=== PATIENT | female | born 1940 | race Caucasian/White ===

== ENCOUNTER → 2020-07-04 15:32 | Outpatient (BNVA) | payer MEDICARE, OTHER, SELFPAY | PROVIDERS: Family Provider Nurse Practitioner; PCP Nurse Practitioner Family; Visit Provider Family Medicine | DX: I10 Essential (primary) hypertension (principal); R79.89 Other specified abnormal findings of blood chemistry | CPT/HCPCS: 80048; 80061 ==

== ENCOUNTER 2020-08-29 15:34 | Outpatient (CLI) | payer MEDICARE, OTHER, SELFPAY ==
--- NOTE | 2020-08-29 15:45 | USCV_ITS ---
Rosemarie Gonzalez Age: 79 Gender: F : 1940 Exam Date: 08/29/2020 16:12 Ordering Phys: Audelia Hardy MD Technologist: Marie Giordano [place] [facility] [place]: PAIN IN LEFT LEG HISTORY: Left lower extremity pain. PROCEDURES: Comparison: none available. Venous duplex imaging was performed in only the left lower extremity. The following venous structures were evaluated: common femoral vein, profunda vein, proximal portion of the greater saphenous vein, superficial femoral vein, and the popliteal vein. In addition, the posterior tibial and peroneal trunk were evaluated. Serial compression, augmentation maneuvers, and spectral Doppler flow evaluation were performed. FINDINGS: No evidence of DVT seen in any vessel visualized at this time. There is a left lower extremity cystic area measuring 1.9 x 0.9 x 1.3 cm CONCLUSIONS No evidence of left lower extremity DVT. Left popliteal cyst measuring 1.9 x 0.9 x 1.3cm Remigio Ha MD (Electronically Signed) Final Date: 30 August 2020 12:33 S
== END 2020-08-29 15:35 | disposition home or self-care (01) ==
LOC: RAD 15:39
PROVIDERS: PCP Nurse Practitioner Family; Visit Provider Family Medicine
DX: M79.605 Pain in left leg (principal); M79.89 Other specified soft tissue disorders; M71.22 Synovial cyst of popliteal space [Baker], left knee
CPT/HCPCS: 93971

== ENCOUNTER → 2021-03-25 09:33 | Outpatient (BNVA) | payer MEDICARE, OTHER, SELFPAY | PROVIDERS: PCP Nurse Practitioner Family; Visit Provider Family Medicine | DX: Z13.220 Encounter for screening for lipoid disorders (principal); Z13.6 Encounter for screening for cardiovascular disorders; I10 Essential (primary) hypertension; R79.89 Other specified abnormal findings of blood chemistry | CPT/HCPCS: 80053; 80061 ==

== ENCOUNTER → 2021-09-23 09:47 | Outpatient (BNVA) | payer MEDICARE, OTHER, SELFPAY | PROVIDERS: PCP Nurse Practitioner Family; Visit Provider Family Medicine | DX: I10 Essential (primary) hypertension (principal); N18.1 Chronic kidney disease, stage 1; E87.1 Hypo-osmolality and hyponatremia | CPT/HCPCS: 80048 ==

== ENCOUNTER 2022-02-12 09:35 | Emergency (ER) | payer MEDICARE, OTHER, SELFPAY ==
[2022-02-12 09:44] VITALS: BP 199/122; PULSE 86; RESP 16; TEMP 36.4; O2SAT 97; BMI 25.4
[2022-02-12 09:46] VITALS: BP 179/87; RESP 18
--- NOTE | 2022-02-12 10:07 | XRR_ITS ---
PROCEDURE INFORMATION: Exam: XR Left Hip Exam date and time: 02/12/2022 10:15 AM Age: 81 years old Clinical indication: Patient HX: Left hip pain x 2 days. Denies any injury; Additional info: Nontraumatic pain left hip TECHNIQUE: Imaging protocol: Radiologic exam of the Left hip. Views: 2 or 3 views hip with pelvis when performed. COMPARISON: No relevant prior studies available. FINDINGS: Bones/joints: Small calcifications are present along the greater trochanter which are probably ligamentous and which could be from remote trauma. No recent fracture or other acute abnormalities are seen. The hip joint is otherwise unremarkable. Soft tissues: Unremarkable. XR/XR hip LT 2-3V wo/w pel* [id number] IMPRESSION: No significant abnormality.
--- NOTE | 2022-02-12 10:08 | W.ED.EXTPRO ---
HPI - Extremity Problem General: Chief complaint: Extremity Problem,Nontraumatic Stated complaint: Right leg pain Time Seen by Provider: 02/12/22 10:02 History of Present Illness: very pleasant 81 year old female presents with 2 days of nontraumatic left lateral hip pain worse with ambulating. No prior history, denies weakness or numbness distal to painful area, no edema, no discoloration, no claudication. No prior history of OA or bursitis. Denies any pelvic or flank pain, no problems with GI or . NO NVD, no paresthesias or weakness. Agrees with plan to allow up to obtain hip x-ray, discussed suspect bursitis or arthritis, will follow up with PCP within the week, advised anti-inflammatories and/or steroids as treatment of choice, patient agrees. Associated symptoms: Deny chest pain, fever(s) or rash Review of Systems Const: Denies: fever(s) or chills Eyes: Denies: change in vision or blurry vision ENMT: Denies: throat pain Card: Denies: chest pain, irregular heart rhythm, swelling of feet/ankles, dyspnea on exertion, orthopnea or leg pain with exertion Resp: Denies: dyspnea, productive cough, wheezing or hemoptysis GI: Denies: abdominal pain, nausea, vomiting, diarrhea, constipation or fecal incontinence : Denies: flank pain, difficulty voiding or dysuria Musc: Denies: neck pain, back pain or extremity swelling Skin/Breast: Denies: rash Neuro: Denies: headache(s), numbness in extremities, weakness in extremities, sensory changes, lack of coordination or difficulty walking Dylan/Lymph: Denies: easy bruising PFS ED PFSH: Medical History Benign hypertension Surgical History H/O bilateral cataract extraction H/O dilation and curettage Family History Family/Other Cancer Social History Smoking and tobacco status: never smoked Alcohol intake: never Female Reproductive History: Spontaneous abortions: No Physical Exam Const: COMMON NORMALS: no acute distress, patient oriented x3, no limitations, healthy appearing, alert and well nourished HENMT: COMMON NORMALS: normocephalic and atraumatic HEAD & SCALP: normocephalic and atraumatic Eye: COMMON NORMALS: Equal, round and reactive pupils present, EOMs intact bilaterally and conjunctivae normal CONJUNCTIVA: Yes conjunctivae normal PUPIL: Yes Equal, round and reactive pupils present Neck/C-Spine: COMMON NORMALS: full ROM and supple Chest: COMMONS NORMALS: normal inspection of the chest Resp: COMMON NORMALS: normal respiratory effort and clear to auscultation bilaterally EFFORT & INSPECTION: Yes able to speak in complete sentences and Yes symmetric chest movement AUSCULTATION: clear to auscultation bilaterally Cardio: COMMON NORMALS: regular rate, regular rhythm and Peripheral pulses 2+ throughout RATE: regular rate RHYTHM: regular rhythm PERIPHERAL PULSES: Peripheral pulses 2+ throughout GI: COMMON NORMALS: Normal to inspection, nondistended, normoactive bowel sounds present and non-tender : COMMON NORMALS: Yes no CVA tenderness BLADDER/KIDNEY EXAM: Yes no CVA tenderness Back/Pelvis: COMMON NORMALS: no CVA tenderness, thoracic and lumbar spine normal to inspection, no thoracic nor lumbar tenderness and thoraco-lumbar ROM normal Extremity: COMMON NORMALS: normal to inspection, full ROM, no calf tenderness and no pedal edema NARRATIVE EXTREMITY EXAM: mild pain to left lateral hip/ bursa area only when walking, no pain lying down or resting, no pain with palpation Neuro: COMMON NORMALS: patient oriented x3, CN's II-XII intact bilaterally, moves all extremities, no focal motor deficits and no sensory deficits noted SENSORIUM/ORIENTATION: Yes alert Psych: COMMON NORMALS: mental status grossly normal, cooperative, normal affect and activity/motor behavior normal Skin: COMMON NORMALS: no wounds and no jaundice Course Vital Signs: Vital signs: Vital Signs Temperature 97.6 F 02/12/22 09:44 Pulse Rate 86 02/12/22 09:44 Respiratory Rate 18 02/12/22 09:46 Blood Pressure 179/87 02/12/22 09:46 Pulse Oximetry 97 02/12/22 09:44 Oxygen Delivery Me thod 02/12/22 09:46 MDM - Extremity (Nontraumatic) Medical Decision Making will obtain x-ray to rule out significant underlying pathology such as osteonecrosis or occult fracture. Suspect bursitis/arthritis. Patient agrees Lab Data Radiology Impressions Hip/Pelvis X-Ray 02/12/22 10:07 IMPRESSION: No significant abnormality. Hip CT 02/12/22 10:34 IMPRESSION: 1. No acute fractures. 2. Calcification along the greater trochanter with distention of the greater trochanteric bursa suspicious for trochanteric bursitis. Discharge Plan Discharge Clinical Impression: Arthritis Condition: Stable Prescriptions: New indomethacin 25 mg capsule 25 mg PO TID MDD 3 cap 3 Days Qty: 9 0RF Rx Instructions: administer with food or milk No Action vitamin A-vit C-vit E-zinc-Cu Tablet 2 tab PO BID Probiotic 3 billion cell capsule 3,000 mmu cells PO DAILY Rx Instructions: administer with a meal atenolol 25 mg tablet 25 mg PO DAILY 90 Days Qty: 90 2RF chlorthalidone 25 mg tablet 25 mg PO DAILY PRN (Reason: leg swelling/high BP) 90 Days Qty: 90 1RF Fish Oil Concentrate 1,000 mg Capsule 1,000 mg PO DAILY Referrals: Audelia Hardy MD [Primary Care Provider] - Discharge Diet: Usual diet Discharge Activity: Resume usual activity and Increase activity as tolerated Patient Instructions: Arthritis (ED) Coding Level of Care Code ED Limited Radiology Technician for Chg Fwd Exam Comprehensive
--- NOTE | 2022-02-12 10:34 | CT_ITS ---
WS: [id number] NONCONTRAST CT LEFT HIP TECHNIQUE: Noncontrast CT LEFT hip with coronal and sagittal reformatted images. CLINICAL INFORMATION: nontraumatic pain COMPARISON: None. DLP: 318.[address] scans at [facility] use at least one of these dose optimization techniques: automated e xposure control; mA and/or kV adjustment per patient size (includes targeted exams where dose is matc hed to clinical indication); or iterative reconstruction. FINDINGS: Moderate degenerative arthritis LEFT hip. No acute fractures. Normal femoral neck. Normal proximal fe mur. Normal pubic rami. Degenerative arthritis the pubic symphysis. Normal acetabulum. Calcification along the LEFT greater trochanter can be symmetric enteric bursitis. Normal acetabulum. Sigmoid diver ticulosis. No other acute findings. CT/CT hip LT wo con* [id number] IMPRESSION: 1. No acute fractures. 2. Calcification along the greater trochanter with distention of the greater t rochanteric bursa suspicious for trochanteric bursitis.
[2022-02-12] MEDS: ketorolac 30 mg/mL INJ 15 MG IM (10:49)
[2022-02-12 12:40] VITALS: BP 150/60; RESP 18
== END 2022-02-12 12:56 | disposition home or self-care (01) ==
PROVIDERS: Emergency Provider Emergency Medicine; PCP Family Medicine
DX: M19.90 Unspecified osteoarthritis, unspecified site (principal); I10 Essential (primary) hypertension
CPT/HCPCS: 73502; 73700; 96372; 99285; J1885

== ENCOUNTER → 2022-03-18 09:21 | Outpatient (BNVA) | payer MEDICARE, OTHER, SELFPAY | PROVIDERS: PCP Family Medicine; Visit Provider Family Medicine | DX: I12.9 Hypertensive chronic kidney disease with stage 1 through stage 4 chronic kidney disease, or unspecified chronic kidney disease (principal); Z13.220 Encounter for screening for lipoid disorders; Z13.6 Encounter for screening for cardiovascular disorders; N18.1 Chronic kidney disease, stage 1 | CPT/HCPCS: 80048; 80061 ==

== ENCOUNTER → 2023-03-23 08:28 | Outpatient (BNVA) | payer MEDICARE, OTHER, SELFPAY | PROVIDERS: PCP Family Medicine; Visit Provider Family Medicine | DX: E78.5 Hyperlipidemia, unspecified (principal); N18.9 Chronic kidney disease, unspecified; I12.9 Hypertensive chronic kidney disease with stage 1 through stage 4 chronic kidney disease, or unspecified chronic kidney disease | CPT/HCPCS: 80053; 80061 ==

== ENCOUNTER → 2024-04-11 13:51 | Outpatient (BNVA) | payer MEDICARE, OTHER, SELFPAY | PROVIDERS: PCP Family Medicine; Visit Provider Family Medicine | DX: E78.00 Pure hypercholesterolemia, unspecified (principal); N18.1 Chronic kidney disease, stage 1 | CPT/HCPCS: 80048; 80061 ==

== ENCOUNTER → 2025-04-20 11:49 | Outpatient (BNVA) | payer MEDICARE, OTHER, SELFPAY | PROVIDERS: PCP Family Medicine; Visit Provider Family Medicine | DX: Z00.00 Encounter for general adult medical examination without abnormal findings (principal); I10 Essential (primary) hypertension; E78.00 Pure hypercholesterolemia, unspecified; N18.1 Chronic kidney disease, stage 1 | CPT/HCPCS: 80048; 80061 ==